=== PATIENT | male | born 1940 | race Asian ===

== ENCOUNTER 2016-11-18 05:39 | Day surgery (SDC) | payer MEDICARE, OTHER ==
[~2016-11-18] VITALS: Ht 165.1 cm; Wt 74.0 kg
[~2016-11-18 05:39] MED LIST: SODIUM CHLORIDE 0.9% 1,000 ML IV ONE
[2016-11-18 06:57] LABS: GLUCOSE,POINT OF CARE 155 MG/DL (70-110)
[2016-11-18] MEDS ORDERED: CARV3 PO (07:14)
[2016-11-18] MEDS ORDERED: GLIP5 PO (07:14)
[2016-11-18] MEDS ORDERED: NAPR-58 PO (07:14)
[2016-11-18] MEDS ORDERED: TAMS0.4C32 PO (07:14)
[2016-11-18] MEDS ORDERED: MECL-111 PO (07:14)
[2016-11-18] MEDS ORDERED: RANI150T7 PO (07:14)
[2016-11-18] MEDS ORDERED: ACET-66 PO (07:14)
[2016-11-18] MEDS ORDERED: FINA5TAB41 PO (07:14)
[2016-11-18] MEDS ORDERED: PRED5 PO (07:15)
[2016-11-18] MEDS ORDERED: MELO-273 PO (07:15)
[2016-11-18] MEDS ORDERED: MethylPREDNISolone SOD SUCC 125 MG/2 ML VIAL IVP ONE (08:15)
[2016-11-18] MEDS ORDERED: LIDOCAINE HCL 2% 30 ML JELLY TP ONE (12:06)
[2016-11-18] MEDS ORDERED: LIDOCAINE HCL 4% 50 ML SOLUTION TP ONE (12:06)
[2016-11-18] MEDS ORDERED: BENZOCAINE 20% 50 MCG/SPRAY 57 GM TP ONE (12:06)
[2016-11-18] MEDS ORDERED: FentaNYL CITRATE-PF 100 MCG/2 ML VIAL ONE (14:27)
[2016-11-18] MEDS ORDERED: MIDAZOLAM HCL 2 MG/2 ML VIAL ONE (14:27)
[2016-11-18] MEDS ORDERED: SODIUM CHLORIDE 0.9% 1,000 ML IV ONE (14:27)
[2016-11-18] MEDS ORDERED: MethylPREDNISolone SOD SUCC 125 MG/2 ML VIAL ONE (14:29)
[2016-11-18] MEDS ORDERED: OXYGEN THERAPY IH SCH (20:00)
== END 2016-11-18 10:25 | disposition home or self-care (01) ==
LOC: SURGERY 05:39
PROVIDERS: ATTEND Internal Medicine Critical Care Medicine
DX: J38.4 Edema of larynx (principal); B37.0 Candidal stomatitis; E11.9 Type 2 diabetes mellitus without complications; Z98.890 Other specified postprocedural states; Z85.038 Personal history of other malignant neoplasm of large intestine
CPT/HCPCS: 31623; 31624; 71010; 82962; 87015 ×2; 87070; 87101; 87147; 87205; 87220; 88108; 88312; 93005; J2250; J2930; J3010; J7030

== ENCOUNTER 2020-06-05 06:20 | Day surgery (SDC) | payer OTHER ==
[~2020-06-05] VITALS: Ht 162.6 cm; Wt 70.5 kg
[~2020-06-05 06:20] MED LIST changes: +ACET-66 PO; +CARV3 PO; +FINA-27 PO; +GLIP5 PO; +MECL-160 PO; +MELO-107 PO; +NAPR-1025 PO; +PRED-409 PO; +RANI150T7 PO; -SODIUM CHLORIDE 0.9% 1,000 ML IV ONE; +TAMS-13 PO
[2020-06-05 06:39] LABS: COVID AG,FIA SOURCE NASOPHARYNGEAL
[2020-06-05] MEDS ORDERED: SODIUM CHLORIDE 0.9% 1,000 ML ONE (06:39)
[2020-06-05] MEDS ORDERED: SODIUM CHLORIDE 0.9% 1,000 ML IV ONE (07:00)
[2020-06-05 07:34] LABS: GLUCOMETER DEV NAME(LOC) SDS.; GLUCOSE,POINT OF CARE 149 MG/DL (70-110)
[2020-06-05] MEDS ORDERED: METF-961 PO (08:15)
[2020-06-05] MEDS ORDERED: ASPI-1450 PO (08:15)
[2020-06-05] MEDS ORDERED: METO25 PO (08:15)
[2020-06-05] MEDS ORDERED: GABA-1201 PO (08:15)
[2020-06-05] MEDS ORDERED: FINA-27 PO (08:15)
[2020-06-05] MEDS ORDERED: MULT120T PO (08:15)
[2020-06-05] MEDS ORDERED: TAMS-13 PO (08:15)
[2020-06-05] MEDS ORDERED: MECL-186 PO (08:15)
[2020-06-05] MEDS ORDERED: ROSU20TA23 PO (08:15)
[2020-06-05] MEDS ORDERED: CHOL500013 PO (08:15)
[2020-06-05] MEDS ORDERED: HYDR25TA2 PO (08:15)
[2020-06-05] MEDS ORDERED: ASCO500 PO (08:15)
[2020-06-05] MEDS ORDERED: VITA-369 PO (08:15)
[2020-06-05] MEDS ORDERED: OMEG1CAP83 PO (08:15)
[2020-06-05] MEDS ORDERED: FentaNYL CITRATE PF 100 MCG/2 ML VIAL ONE (08:20)
[2020-06-05] MEDS ORDERED: MIDAZOLAM HCL 2 MG/2 ML VIAL ONE (08:20)
[2020-06-05] MEDS ORDERED: MethylPREDNISolone SOD SUCC 125 MG/2 ML VIAL IVP ONE (08:45)
[2020-06-05] MEDS ORDERED: MethylPREDNISolone SOD SUCC 125 MG/2 ML VIAL ONE (08:50)
[2020-06-05] MEDS ORDERED: OXYGEN THERAPY IH SCH (20:00)
== END 2020-06-05 10:15 | disposition home or self-care (01) ==
LOC: SURGERY 06:20
PROVIDERS: ATTEND Internal Medicine Critical Care Medicine
DX: J38.4 Edema of larynx (principal); B37.0 Candidal stomatitis; E78.00 Pure hypercholesterolemia, unspecified; E11.9 Type 2 diabetes mellitus without complications; Z79.82 Long term (current) use of aspirin; Z85.038 Personal history of other malignant neoplasm of large intestine; Z98.890 Other specified postprocedural states; Z86.73 Personal history of transient ischemic attack (TIA), and cerebral infarction without residual deficits
CPT/HCPCS: 31623; 31624; 71045; 82962; 87015; 87070; 87101; 87205; 87206; 87220; 87426; 88108; 88184; 88185; 88312; C9803; J2250; J2930; J3010; J7030